=== PATIENT | female | born 1935 | race African-American/Black ===

== ENCOUNTER 2017-12-28 12:57 | Emergency (ER) | payer MEDICARE ==
[~2017-12-28] VITALS: Ht 165.1 cm; Wt 81.8 kg
[~2017-12-28 12:57] MED LIST: ASPI81CH6 CHEW; CALCTAB33 PO; CLON0.3T PO; CYCL10TA PO; FISHCAP4 PO; GABA600T PO; GARL3CAP; LOSA100T PO; METF500T PO; METO50TA PO; MIRTA15 PO; MULTTAB67 PO; NORC5TAB PO; PRAV40TA2 PO; VITA100018 PO
[2017-12-28 12:59] VITALS: BP 126/66; PULSE 89; RESP 18; TEMP 99.1; O2SAT 95
--- NOTE | 2017-12-28 14:53 | PD ---
HPI Chief Complaint: Skin Problem Time Seen by Provider: 14:30 Travel History International Travel<30 days: No Contact w/Intl Traveler<30days: No Traveled to known affect area: No History of Present Illness HPI patient is wheelchair bound and over the last few weeks has developed some decubitus ulcers, due to pcp and insurance problems apparently wound care and home health care were not adequately set...this is now planned for tomorrow however patient and daughter told to come to er to examine if it's infected. patient states some pain to area, and wears diaper. does not use a doughnut seat. pcp is dr lisseth hull ?sp pmhx:dm, htn, hyperchol, wheelchair bound, PFSH Past Medical History Arthritis: Yes Asthma: No Blood Disorders: No Cancer: No Cardiovascular Problems: Yes High Cholesterol: Yes COPD: No Diabetes: Yes Patient Takes Glucophage: Yes Endocrine: No Genitourinary: No Hepatitis: No Hiatal Hernia: No Hypertension: Yes Immune Disorder: No Medical other: Yes (NECK, BACK, ARTHRITIES) Musculoskeletal: Yes Neurologic: Yes Psychiatric: No Reproductive: No Respiratory: No Thyroid Disease: No Past Surgical History Eye Surgery: Yes (ORIF RIGHT ORBITAL FX,CATARACT SX BOTH EYES) Gynecologic Surgery: Yes (TUBAL LIGATION) Joint Replacement: Yes (LEFT & RIGHT TOTAL KNEE) Neurologic Surgery: Yes (LUMBAR LAMINECTOMY WITH FUSION) Other Surgery: Yes (ORIF RIGHT WRIST) Social History Alcohol Use: No Tobacco Use: No Substance Use: No Allergies-Medications (Allergen,Severity, Reaction): Coded Allergies: Sulfa (Sulfonamide Antibiotics) (Unverified Allergy, Severe, RASH, TACHYCARADIA, 12/28/17) atorvastatin (Unverified Allergy, Severe, FAST HEART RATE, 12/28/17) pentazocine (Unverified Allergy, Severe, VOMITING, 12/28/17) trimethobenzamide (Unverified Allergy, Severe, VOMITING, 12/28/17) Reported Meds & Prescriptions Reported Meds & Active Scripts Active [place] (Hydrocodone-Acetaminophen) 5 Mg-325 Mg Tab 1 Tab PO HS PRN Flexeril (Cyclobenzaprine HCl) 10 Mg Tab 10 Mg PO BID Gabapentin 600 Mg Tab 600 Mg PO HS Clonidine (Clonidine HCl) 0.3 Mg Tab 0.3 Mg PO HS Reported Calcium 600+D Plus Minerals (Calcium Carbonate-Vitamin D W/Minerals) 600-400 Mg- Unit Tab 1 Tab PO BID Fish Oil + D3 (Fish Oil-Cholecalciferol) 1,200-1,000 Mg-Unit Cap 1 Cap PO DAILY Garlic 1,500 Mg Capsule Multiple Vitamin 1 Tab 1 Tab PO DAILY Mirtazapine 15 Mg Tab 15 Mg PO HS Vitamin D3 (Cholecalciferol) 1,000 Unit Tab 1,000 Units PO DAILY Metoprolol Tartrate 50 Mg Tab 50 Mg PO BID Losartan (Losartan Potassium) 100 Mg Tab 100 Mg PO DAILY Metformin (Metformin HCl) 500 Mg Tab 500 Mg PO BIDPC Pravastatin 40 Mg Tab 40 Mg PO DAILY Aspirin Low Dose (Aspirin) 81 Mg Chew 81 Mg CHEW DAILY Review of Systems Except as stated in HPI: all other systems reviewed are Neg General / Constitutional: No: Fever Eyes: No: Visual changes HENT: No: Headaches Cardiovascular: No: Chest Pain or Discomfort Respiratory: No: Shortness of Breath Gastrointestinal: No: Abdominal Pain Genitourinary: No: Dysuria Musculoskeletal: No: Pain Skin: Positive Other (skin breakdown) Neurologic: No: Weakness Psychiatric: No: Depression Endocrine: No: Polydipsia Hematologic/Lymphatic: No: Easy Bruising Physical Exam Narrative GENERAL: SKIN: Warm and dry. HEAD: Atraumatic. Normocephalic. EYES: Pupils equal and round. No scleral icterus. No injection or drainage. ENT: No nasal bleeding or discharge. Mucous membranes pink and moist. NECK: Trachea midline. No JVD. CARDIOVASCULAR: Regular rate and rhythm. RESPIRATORY: No accessory muscle use. Clear to auscultation. Breath sounds equal bilaterally. GASTROINTESTINAL: Abdomen soft, non-tender, nondistended. MUSCULOSKELETAL: Extremities without clubbing, cyanosis, or edema. No obvious deformities. see buttock diagram NEUROLOGICAL: Awake and alert. No obvious cranial nerve deficits. Motor grossly within normal limits. Five out of 5 muscle strength in the arms and legs. Normal speech. PSYCHIATRIC: Appropriate mood and affect; insight and judgment normal. Body 1 - Abrasion (stage 2 decub ulcer, no discharge, quarter size and round) 2 - Abrasion (decub ulceration over medail aspect of left buttock, about 8 cm in length, stage 2) Comment correction second wound described is a stage 3 on the middle 4cm but peripheral 2cm superiorly/2 cm inferiorly are stage 2 Data Data Last Documented VS Vital Signs Date Time Temp Pulse Resp B/P (MAP) Pulse Ox O2 Delivery O2 Flow Rate FiO2 12/28/17 12:59 99.1 89 18 126/66 (86) 95 Room Air Orders Orders Zinc Oxide 20% Oint (Zinc Oxide 20% Oint (12/28/17 15:00) Wound Care (12/28/17 14:42) MDM Medical Decision Making Medical Screen Exam Complete: Yes Emergency Medical Condition: Yes Medical Record Reviewed: Yes Differential Diagnosis n/a Narrative Course patient has pcp who has setup appointment with wound care tomorrow, so she will followup as scheduled. today no e/o drainage or infection. wound covered in zinc oxide, and duoderm Diagnosis Primary Impression: Decubitus ulcer of coccyx, stage 2 Additional Impression: decubitus ulcer stage 3 of left buttock without infection Patient Instructions: Chronic Wound Care (DC), General Instructions Disposition: 01 DISCHARGE HOME Condition: Stable Mark Frey MD Dec 28, 2017 14:53
[2017-12-28] MEDS ORDERED: ZINC OXIDE 20% OINT 30 GM TUBE TOPICAL ONE (15:00)
== END 2017-12-28 16:27 | disposition home or self-care (01) ==
LOC: NEPD 12:57
DX: L89.152 Pressure ulcer of sacral region, stage 2 (principal); L89.323 Pressure ulcer of left buttock, stage 3; E11.9 Type 2 diabetes mellitus without complications; E78.00 Pure hypercholesterolemia, unspecified; I10 Essential (primary) hypertension; Z79.84 Long term (current) use of oral hypoglycemic drugs; Z99.3 Dependence on wheelchair
CPT/HCPCS: 99282